=== PATIENT | female | born 1955 | race Caucasian/White ===

== ENCOUNTER → 2024-08-06 10:04 | Outpatient (REF) | payer MEDICARE, SELFPAY | LOC: RCS 10:04 | PROVIDERS: ATTENDING PHYSICIAN Internal Medicine Cardiovascular Disease; FAMILY PHYSICIAN Family Medicine | DX: R00.2 Palpitations (principal); E78.00 Pure hypercholesterolemia, unspecified | CPT/HCPCS: 93225; 93226 ==

== ENCOUNTER → 2024-08-13 10:12 | Outpatient (REF) | payer MEDICARE, SELFPAY | LOC: HWRCS 10:12 | PROVIDERS: ATTENDING PHYSICIAN Internal Medicine Cardiovascular Disease; FAMILY PHYSICIAN Family Medicine | DX: R00.2 Palpitations (principal); E78.00 Pure hypercholesterolemia, unspecified | CPT/HCPCS: 93306 ==

== ENCOUNTER → 2024-12-04 13:28 | Outpatient (REF) | payer MEDICARE, SELFPAY | LOC: HWWDC 13:28 | PROVIDERS: ATTENDING PHYSICIAN Family Medicine; REFERRING PHYSICIAN Obstetrics & Gynecology Gynecology | DX: Z12.31 Encounter for screening mammogram for malignant neoplasm of breast (principal) | CPT/HCPCS: 77063; 77067 ==

== ENCOUNTER → 2025-05-25 07:51 | Outpatient (REF) | payer MEDICARE, SELFPAY | LOC: PAVMRI 07:51 | PROVIDERS: ATTENDING PHYSICIAN Specialist; FAMILY PHYSICIAN Family Medicine | DX: M25.511 Pain in right shoulder (principal); Z98.890 Other specified postprocedural states | CPT/HCPCS: 73221 ==

== ENCOUNTER 2025-10-04 12:35 | Emergency (ER) | payer MEDICARE, SELFPAY ==
[2025-10-04] VITALS (7 sets, daily range): BP systolic 125–142; BP diastolic 54–69; BMI 31.1
--- NOTE | 2025-10-04 12:54 | ED.GENMED ---
History of Present Illness
General
Chief Complaint: Fainting/Passed Out
Source: patient and ambulance crew
Exam Limitations: none
Time Seen by Provider: 10/04/25 12:45
Nursing documentation reviewed up to this point in time: agreed with
History of Present Illness
History of Present Illness:
Note:
CHIEF COMPLAINT(S)
Syncope
HISTORY OF PRESENT ILLNESS
The patient is a 70-year-old female who experienced an episode of syncope at home. She describes sitting down with her spouse when she felt light-headed and passed out, falling onto the floor. Her spouse elevated her legs, and she began to feel
better after some time. She reports a mild feeling of shortness of breath for a few days post-surgery, which she attributes to a nerve block administered during the procedure. The shortness of breath resolved spontaneously. The patient denies any
current chest pain and notes that while short of breath previously, she believed it was due to a combination of the surgical block and anesthetic effects.
PAST MEDICAL AND SURGICAL HISTORY
The patient had a recent surgery, reported to be an outpatient procedure, during which a nerve block was used. She has also experienced syncope on prior occasions, specifically after taking niacin and receiving an injection in the ankle.
SOCIAL HISTORY
The patient denies smoking, alcohol consumption, or illicit drug use. She reports no history of COVID-19 infection.
MEDICATIONS
- Aspirin 325 mg, post-surgery.
- Diclofenac for arthritis.
- A short course of Dexamethasone (40 mg for three days post-operatively).
REVIEW OF SYSTEMS
- Cardiovascular: Denies chest pain. History of syncope.
- Respiratory: Reports resolved shortness of breath post-surgery.
- No current symptoms of infectious diarrhea (C. difficile mentioned in the context of the discussion).
PHYSICAL EXAM
General: Alert, no acute distress.
Skin: Warm, dry.
Head: Normocephalic, atraumatic.
Neck: Supple, trachea midline.
Eye Ears, nose, mouth and throat: Oral mucosa moist.
Cardiovascular: Normal peripheral perfusion, No edema.
Respiratory: Respirations are non-labored.
Gastrointestinal : Abdomen nondistended
Back: Normal range of motion, Normal alignment.
Musculoskeletal: Normal ROM, normal strength.
Neurological: Alert and oriented to person, place, time, and situation, No focal neurological deficit observed.
Psychiatric: Cooperative, appropriate mood & affect.
PROBLEM LIST
- Acute: Syncope.
PLAN
The patient underwent an electrocardiogram which was reported as normal. Blood tests are planned to evaluate potential causes of syncope, such as electrolyte imbalances or increased blood volume. A potential vasovagal response was considered likely
due to prior episodes of syncope related to specific triggers. The discussion indicated a low likelihood of a current blood clot issue due to the absence of significant symptoms.
DIFFERENTIAL DIAGNOSIS
The Differential Diagnosis includes, in no particular order and is not limited to:
- Vasovagal syncope
- Orthostatic hypotension
- Cardiac arrhythmia
- Dehydration
- Hypoglycemia
- Medication-induced syncope
- Anemia
- Electrolyte imbalance
- Postural syncope
- Neurological causes (less likely given current data)
EKG
My independent EKG interpretation is:
- Time of EKG: Not specified
- Rhythm: Sinus arrhythmia
- Heart Rate: 69 bpm
- UT Interval: Normal
- QRS Duration: Normal
- QT Interval: Normal
- [place]: Not specified
- Abnormalities: No ST segment changes, no T wave inversions
EKG
My independent EKG interpretation is:
- Time of EKG: [Not specified]
- Rhythm: Normal sinus rhythm
- Heart rate: 63 bpm
- UT interval: [Not specified]
- QRS duration: Normal
- QT interval: Normal
- [place]: Normal
- Abnormalities: None observed
Disposition:
SUMMARY OF ENCOUNTER
The patient, a 70-year-old female, was seen in the emergency department due to an episode of syncope at home. She reported feeling light-headed and passing out while sitting with her spouse. After the episode, she experienced a mild shortness of
breath for a few days, which resolved spontaneously. The patient underwent an electrocardiogram which was reported as normal, and a CT scan was negative for pulmonary embolism. Blood tests such as troponin were conducted and yielded normal results.
DISPOSITION
Discharge
ASSESSMENT
The episode is most likely attributed to vasovagal syncope, considering her history of syncope related to specific triggers, and orthostatic hypotension or dehydration may have been contributory factors.
PLAN
The patient will be monitored for any further episodes of syncope. Blood tests have been arranged to evaluate potential causes such as electrolyte imbalances. No acute interventions are required at this time due to stable conditions and negative
imaging.
INDEPENDENT REVIEW OF LABS AND INTERPRETATION OF TESTS
My independent review of troponin is normal. My independent review of the CT scan shows no evidence of pulmonary embolism.
PATIENT EDUCATION AND COUNSELING
Educated the patient about the potential triggers and management of syncope, emphasizing hydration and gradual position changes to prevent further episodes.
FOLLOW-UP INSTRUCTIONS
Please call the office immediately to schedule a follow-up visit.
MEDICATION RECONCILIATION
1. Aspirin 325 mg
2. Diclofenac
3. Dexamethasone (completed short course, not ongoing)
MEDICAL DECISION MAKING
-Complexity of Data Reviewed: Chronic conditions affecting care include the past history of syncope. Differential Diagnosis includes vasovagal syncope, orthostatic hypotension, cardiac arrhythmia, dehydration, hypoglycemia, medication-induced
syncope.
-Data:
Category 1
My independent interpretation of EKG shows normal sinus rhythm.
Category 2
Clinical information obtained from the patient and the spouse regarding the syncope episode.
-Risk:
Consideration of Admission/Observation: Escalation of care including admission/observation was considered given the complexity and risk of the patients presenting complaint. However, I feel the patient is safe for outpatient management with close
follow-up. Reasoning: Work-up reassuring, does not reveal any acute life/organ-threatening processes, patients symptoms well controlled upon reevaluation, vitals are stable, patient agreeable with discharge, reliable for follow-up.
DIAGNOSIS
- Vasovagal Syncope (ICD-10: R55)
- Orthostatic Hypotension (ICD-10: I95.1)
- History of Syncope (ICD-10: R55)
Past History
Past History
ED Past Medical History: Hypercholesterolemia and Hypothyroidism
Social History
Tobacco: Non-smoker
Personal:
Employment: Employed
Family History
Family History: Early CAD
Phy Exam
Physical Exam
Physical Exam:
.
Course
Orders/Labs/Results
Orders:
Orders
10/04/25 12:44
EKG [Electrocardiogram (*1)] Urgent
Reason for Study: Syncope
10/04/25 12:45
EKG- Treatment ONCE
10/04/25 13:09
CMP [Comprehensive Metabolic Panel] Urgent
Complete Blood Count/With Diff Urgent
D-Dimer Urgent
Troponin I Urgent
10/04/25 14:18
CT Chest PE Study Urgent
Comment:
Reason For Exam: syncope, elevated ddimer
10/04/25 16:11
Electrocardiogram (*1) Urgent
Reason for Study: Syncope
10/04/25 16:12
EKG- Treatment ONCE
10/04/25 16:23
Troponin I Urgent
10/04/25 17:54
Shoulder, Right 2 Views [CR Shoulder - Right Min 2 View] Urgent
Comment:
Reason For Exam: fall
Abnormal Lab Results
10/04/25
13:09
WBC 12.0 H 10^3/uL
(4.8-10.8)
Hct 36.9 L %
(37.0-47.0)
Abs Immat Gran (auto) 0.2 H 10^3/uL
(0-0.05)
Absolute Neuts (auto) 7.2 H 10^3/uL
(1.4-6.5)
Absolute Lymphs (auto) 3.5 H 10^3/uL
(1.2-3.4)
Absolute Monos (auto) 0.8 H 10^3/uL
(0.1-0.6)
Immature Gran % 1.3 H %
(0-0.5)
D-Dimer 1.93 H ug/mlFEU
(0.00-0.50)
Sodium 132 L mmol/L
(135-145)
BUN 32 H mg/dl
(7-17)
Total Protein 6.1 L g/dl
(6.3-8.2)
10/04/25 13:09
10/04/25 13:09
Vital Signs
Initial and Last Documented VS:
Initial Vital Signs
Temp Pulse Resp BP Pulse Ox
98.1 F 65 16 125/54 98
10/04/25 12:45 10/04/25 12:45 10/04/25 12:45 10/04/25 12:45 10/04/25 12:45
Last Documented Vital Signs
Temp Pulse Resp BP Pulse Ox
98.1 F 63 12 139/66 97
10/04/25 12:45 10/04/25 18:30 10/04/25 18:30 10/04/25 18:00 10/04/25 18:30
*Pulse Oximetry
Patient hypoxic: no
*Critical Care Note
Total Time (30-74mins, 75-104mins- exclusive of procedures): Not Applicable
ED Attending Note
-
Portions of this chart may have been created with voice recognition software.� Occasional wrong word or��sound alike� substitutions may have occurred due to the inherent limitations of voice recognition software.
Discharge Plan
Departure
Patient Disposition: Home (Routine Discharge)
Date of Disposition: 10/04/25
Time of Disposition: 18:53
Patient with high blood pressure during this ER visit?: Yes
Condition: Good
Discharge Problem:
Syncope
Instructions: Syncope (Fainting) (DC), BLOOD PRESSURE
Prescriptions:
No Action
aspirin 81 MG tablet,delayed release (DR/EC)
81 mg PO DAILY
levothyroxine 75 MCG tablet
75 mcg PO DAILY
fluoxetine 20 MG capsule
20 mg PO DAILY
Multiple Vitamins
1 tab PO DAILY
Simvastatin
PO DAILY
Patient Comments:
pt does not know the dose
Referrals:
Laurie De La Cruz MD [Family Provider] - Call in 1-3 days for appt
Interventions
Interventions:
*General Assessment Last Done: 10/04/25 12:45
*Neglect/Abuse Screening Last Done: 10/04/25 12:45
*ED COVID-19 Vaccine History Last Done: 10/04/25 12:45
*ED Influenza Vaccine History Last Done: 10/04/25 12:45
[facility] Fall Risk Assessment Tool Last Done: 10/04/25 12:57
*Risk Screen - Suicide (C-SSRS) Last Done: 10/04/25 12:56
*Nursing Disposition Last Done: 10/04/25 19:02
ED- Cardiac Assessment Last Done: 10/04/25 12:57
ED- Neurological Assessment Last Done: 10/04/25 12:57
Discharge Date and Time
Discharge Date/Time: 10/04/25 19:02
Print Language: RUSSIAN
[2025-10-04 13:16] LABS: Hematocrit 36.9 % (37.0-47.0); Hemoglobin 12.3 g/dL (12.0-16.0); Mean Corp Hgb Conc. 33.3 g/dL (33.0-37.0); Mean Corpuscular Volume 86.2 fL (81.0-99.0); Nucleated Red Blood Cells % 0 %; Platelet Count 271 10^3/uL (130-400); Red Cell Dist. Width 13.3 % (11.5-14.5)
[2025-10-04 13:29] LABS: D-Dimer 1.93 ug/mlFEU (0.00-0.50)
[2025-10-04 13:35] LABS: ALT (SGPT) 22 U/L (0-35); AST (SGOT) 26 U/L (14-36); Albumin 3.5 g/dl (3.5-5.0); Alkaline Phosphatase 67 U/L (38-126); Blood Urea Nitrogen 32 mg/dl (7-17); Calcium 8.4 mg/dl (8.4-10.2); Carbon Dioxide 25 mmol/L (22-30); Chloride 102 mmol/L (98-107); Estimated Creatinine Clearance 64 ml/min; Glucose 96 mg/dl (70-99); Potassium 4.1 mmol/L (3.5-5.1); Sodium 132 mmol/L (135-145); Total Protein 6.1 g/dl (6.3-8.2); eGFR > 60.00
[2025-10-04 13:41] LABS: Troponin I 0.014 ng/ml
[2025-10-04 17:02] LABS: Troponin I 0.017 ng/ml
== END 2025-10-04 19:02 | disposition home or self-care (01) ==
LOC: EMR 12:35
PROVIDERS: Emergency Medicine; EMERGENCY PHYSICIAN Emergency Medicine; FAMILY PHYSICIAN Family Medicine
DX: R55 Syncope and collapse (principal); E78.00 Pure hypercholesterolemia, unspecified; E03.9 Hypothyroidism, unspecified; Z82.49 Family history of ischemic heart disease and other diseases of the circulatory system; Z96.611 Presence of right artificial shoulder joint
CPT/HCPCS: 99284; 71275; 73030; 80053; 84484; 85025; 85379; 93005; Q9967